=== PATIENT | female | born 1995 ===

== ENCOUNTER 2020-10-28 18:24 | Emergency (ER) | payer OTHER ==
[~2020-10-28] VITALS: Ht 172.7 cm; Wt 61.4 kg
[2020-10-28 18:53] VITALS: BP 105/71
[2020-10-28 20:22] LABS: HIV ANTIBODY 1&2 RAPID NON-REACTIVE (Neg)
[2020-10-30 11:14] LABS: HEP B CORE AB, TOT Negative (Negative); HEPATITIS C ANTIBODY <0.1 s/co ratio (0.0-0.9)
== END 2020-10-28 20:25 | disposition home or self-care (01) ==
LOC: ER 18:25
DX: S60.411A Abrasion of left index finger, initial encounter (principal); Z77.21 Contact with and (suspected) exposure to potentially hazardous body fluids; W27.8XXA Contact with other nonpowered hand tool, initial encounter; Y93.F9 Activity, other caregiving; Y92.238 Other place in hospital as the place of occurrence of the external cause; Y99.8 Other external cause status
CPT/HCPCS: 36415; 86703; 86704; 86705; 86706; 86803; 99283